=== PATIENT | male | born 1950 | race Caucasian/White ===

== ENCOUNTER 2025-01-22 10:58 | Emergency (ER) | payer MEDICARE, MEDICAID ==
[~2025-01-22] VITALS: Ht 175.3 cm; Wt 79.8 kg
[2025-01-22 10:58] VITALS: BP 102/66
[2025-01-22] MEDS ORDERED: FLUV150C2 PO (11:12)
[2025-01-22] MEDS ORDERED: OLME5TAB29 PO (11:12)
[2025-01-22] MEDS ORDERED: ROSU20TA PO (11:12)
[2025-01-22] MEDS ORDERED: SILO4CAP PO (11:13)
[2025-01-22] MEDS ORDERED: AMLO-212 PO (11:13)
[2025-01-22] MEDS ORDERED: LIOT5TAB11 PO (11:13)
[2025-01-22] MEDS ORDERED: DEXT15LI PO (11:14)
[2025-01-22 12:08] LABS: PLATELET COUNT (AUTO) 236 K/uL (152-348); RED BLOOD CELL COUNT(AUTO) 4.98 MIL/uL (4.06-5.63); RED CELL DISTRIBUTION WIDTH 12.8 % (12.1-16.2); WHITE BLOOD COUNT (AUTO) 10.4 K/uL (3.6-10.2)
[2025-01-22 12:19] LABS: CREATININE 1.5 mg/dL (0.6-1.3); SODIUM SERUM 137 mmol/L (136-145); UREA NITROGEN, BLOOD 18 mg/dL (7-18)
[2025-01-22] MEDS ORDERED: GUAI5SYR4 PO (12:46)
[2025-01-22] MEDS ORDERED: AZIT250T13 PO (12:46)
[2025-01-22 13:05] VITALS: BP 102/66; TEMP 97.9; O2SAT 95
== END 2025-01-22 13:11 | disposition home or self-care (01) ==
LOC: ER 10:58
DX: J20.9 Acute bronchitis, unspecified (principal); R05.9 Cough, unspecified; E89.0 Postprocedural hypothyroidism; E78.00 Pure hypercholesterolemia, unspecified; I51.9 Heart disease, unspecified; Z87.01 Personal history of pneumonia (recurrent)
CPT/HCPCS: 36415; 71046; 85025; A4606; A4663